=== PATIENT | female | born 1965 | race African-American/Black ===

== ENCOUNTER 2019-05-09 18:02 | Emergency (ER) | payer MEDICAID ==
[~2019-05-09] VITALS: Ht 172.7 cm; Wt 87.0 kg
[2019-05-09 18:53] VITALS: BP 149/92
== END 2019-05-09 20:53 | disposition home or self-care (01) ==
LOC: ER 18:02
DX: T16.2XXA Foreign body in left ear, initial encounter (principal); X58.XXXA Exposure to other specified factors, initial encounter; Y93.89 Activity, other specified; Y92.89 Other specified places as the place of occurrence of the external cause; Y99.8 Other external cause status; I10 Essential (primary) hypertension
CPT/HCPCS: 99281